=== PATIENT | female | born 1990 | race Caucasian/White ===

== ENCOUNTER 2017-02-02 12:58 | Inpatient (IN) | payer OTHER ==
[2017-02-02] MEDS ORDERED: ONDANSETRON 4 MG/2 ML VIAL IVP ONE (13:32)
[2017-02-02] MEDS ORDERED: HYDROmorphONE/DILAUDID 1 MG/ML SYR IVP ONE (13:32)
[2017-02-02] MEDS ORDERED: NS 1,000 ML IV ONE ×2 (13:32→14:07)
--- NOTE | 2017-02-02 13:36 | EDPHY ---
H & P Time Seen by Provider: 02/02/17 13:13 HPI/ROS: HPI Abdominal pain. 26-year-old female by private vehicle with her boyfriend. This patient reports that she started developing right lower quadrant abdominal pain with radiation to the right flank on Saturday evening. She reports this worsened evening. She reports that she was seen by her primary care physician, Dr. Forrest yesterday. She was diagnosed with a probable urinary tract infection and took 2 ciprofloxacin tablets since this time. She reports having some mild frequency with urination. No dysuria. No gross hematuria. Last menstrual period was 1 and half weeks ago. Last bowel movement was 2 days ago. Last meal was last night. No prior abdominal surgical history ROS: Constitutional: No fever, no chills. No weakness. Eyes: No discharge. No changes in vision. ENT: No sore throat. No nasal congestion or rhinorrhea. Respiratory: No cough. No shortness of breath. Cardiac: No chest pain, no palpitations. Gastrointestinal: As above, no vomiting, no diarrhea. Genitourinary: No hematuria. As above. Musculoskeletal: No back pain. No neck pain. No myalgias or arthralgias. Skin: No rashes. Neurological: No headache. No focal weakness or altered sensation. Past medical history: None. Takes control. Social history: Here with boyfriend. Nonsmoker. Physical Exam: General Appearance: Alert, no distress. This patient is responding to questions appropriately and in full sentences. This patient appears well- hydrated and well-nourished. Eyes: Pupils equal and round no pallor or injection. No lid edema, erythema or injection. Respiratory: There are no retractions, lungs are clear to auscultation with good air movement bilaterally. Cardiovascular: Regular rate and rhythm. No murmur. Gastrointestinal: Abdomen is soft with right lower quadrant tenderness on palpation, she also has right upper quadrant tenderness on palpation which is mild no guarding, no masses, bowel sounds normal. No focal tenderness at McBurney's point. No Nguyen sign. Neurological: Motor sensory function is grossly intact. Cranial nerves are normal. Gait is normal. Skin: Warm and dry, no rashes. Musculoskeletal: Mild right upper CVA tenderness on palpation. Extremities are symmetrical. All joints range without pain or impingement. Psychiatric: No agitation. No depression. Database: EKG: Imaging: CT scan of abdomen and pelvis with IV contrast: Significant for pyelonephritis. Results discussed with staff radiologist Dr. Aristides Mckeon. Procedures: Emergency department course: IV placed. She was placed on a monitor. She was started on IV normal saline with 1 L to be given over the next hour. She was made NPO. She will initially be given 0.5 mg of IV hydromorphone for pain and 4 mg of IV Zofran for nausea. She will be sent for CT imaging to evaluate for possible appendicitis. 2:45 p.m., informed of CT scan results. Patient given a 2nd L of IV normal saline. 2 g of IV Rocephin ordered. 3:20 p.m., patient re-evaluated, feeling better but still remains tachycardic at 110-115. Sepsis protocol initiated. Blood cultures, lactate will be obtained. 3rd L of IV normal saline started. Plan will be to admit this patient at this time. Hospitalist paged. 4:00 p.m., spoke with on-call hospitalist, Dr. Hong. Patient admitted to the hospitalist service in stable condition. Differential Diagnosis: The differential diagnosis on this patient includes but is not limited to appendicitis, biliary colic, cholecystitis, nephrolithiasis, urinary tract infection, pyelonephritis. This represents a partial list of diagnoses considered. These considerations are based on history, physical exam, past history, reassessment and diagnostic testing. Smoking Status: Current every day smoker Constitutional: Initial Vital Signs Temperature (C) 37.2 C 02/02/17 13:08 Heart Rate 120 H 02/02/17 13:08 Respiratory Rate 17 02/02/17 13:08 Blood Pressure 98/60 L 02/02/17 13:08 O2 Sat (%) 99 02/02/17 13:08 O2 Delivery Mode Room Air Allergies/Adverse Reactions: erythromycin base Allergy (Verified 02/02/17 13:07) Home Medications: Medication Instructions Recorded Oly Allergy 02/02/17 Medical Decision Making - Diagnostics Imaging Results: Imaging Impressions Abdomen CT 02/02/17 13:32 Impression: Multiple areas of diminished enhancement within the right kidney compatible with multifocal pyelonephritis, with mild perinephric inflammatory stranding. Results called to Dr. Xavier at 2:45 PM. - Data Points Laboratory Results: Laboratory Results 02/02/17 13:30 02/02/17 13:30 02/02/17 02/02/17 02/02/17 13:34 13:30 13:30 WBC RBC Hgb Hct MCV MCH MCHC RDW Plt Count MPV Neut % (Auto) Lymph % (Auto) [place] % (Auto) Eos % (Auto) Baso % (Auto) Nucleat RBC Rel Count Absolute Neuts (auto) Absolute Lymphs (auto) Absolute Monos (auto) Absolute Eos (auto) Absolute Basos (auto) Absolute Nucleated RBC Immature Gran % Immature Gran # Sodium 135 mEq/L mEq/L (134-144) Potassium 4.4 mEq/L mEq/L (3.5-5.2) Chloride 101 mEq/L mEq/L (97-110) Carbon Dioxide 24 mEq/l mEq/l (22-31) Anion Gap 10 mEq/L mEq/L (8-16) BUN 7 mg/dL mg/dL (7-23) Creatinine 0.7 mg/dL mg/dL (0.6-1.0) Estimated GFR > 60 Glucose 113 mg/dL H mg/dL (70-100) Calcium 8.7 mg/dL mg/dL (8.5-10.4) Total Bilirubin 0.9 mg/dL mg/dL (0.1-1.4) Conjugated Bilirubin 0.3 mg/dL mg/dL (0.0-0.5) Unconjugated Bilirubin 0.6 mg/dL mg/dL (0.0-1.1) AST 18 IU/L IU/L (14-46) ALT 22 IU/L IU/L (9-52) Alkaline Phosphatase 66 IU/L IU/L (38-126) Total Protein 7.1 g/dL g/dL (6.3-8.2) Albumin 4.1 g/dL g/dL (3.5-5.0) Lipase 13.0 IU/L L IU/L (23-300) Beta HCG, Qual NEGATIVE Urine Color YELLOW Urine Appearance HAZY Urine pH 5.0 (5.0-7.5) Ur Specific [place] 1.014 (1.002-1.030) Urine Protein 1+ H (NEGATIVE) Urine Ketones TRACE H (NEGATIVE) Urine Blood 1+ H (NEGATIVE) Urine Nitrate NEGATIVE (NEGATIVE) Urine Bilirubin NEGATIVE (NEGATIVE) Urine Urobilinogen NEGATIVE EU EU (0.2-1.0) Ur Leukocyte Esterase 1+ H (NEGATIVE) Urine RBC 5-10 /hpf H /hpf (0-3) Urine WBC 25-50 /hpf H /hpf (0-3) Ur Epithelial Cells 1+ /lpf /lpf (NONE-1+) Hyaline Casts 1-5 /lpf /lpf (0-1) Urine Mucus TRACE /lpf /lpf (NONE-1+) Urine Glucose NEGATIVE (NEGATIVE) 02/02/17 13:30 WBC 27.56 10^3/uL H 10^3/uL (3.80-9.50) RBC 4.10 10^6/uL L 10^6/uL (4.18-5.33) Hgb 12.5 g/dL L g/dL (12.6-16.3) Hct 36.8 % L % (38.0-47.0) MCV 89.8 fL fL (81.5-99.8) MCH 30.5 pg pg (27.9-34.1) MCHC 34.0 g/dL g/dL (32.4-36.7) RDW 12.1 % % (11.5-15.2) Plt Count 255 10^3/uL 10^3/uL (150-400) MPV 10.0 fL fL (8.7-11.7) Neut % (Auto) 87.7 % H % (39.3-74.2) Lymph % (Auto) 6.6 % L % (15.0-45.0) [place] % (Auto) 4.7 % % (4.5-13.0) Eos % (Auto) 0.0 % L % (0.6-7.6) Baso % (Auto) 0.3 % % (0.3-1.7) Nucleat RBC Rel Count 0.0 % % (0.0-0.2) Absolute Neuts (auto) 24.13 10^3/uL H 10^3/uL (1.70-6.50) Absolute Lymphs (auto) 1.83 10^3/uL 10^3/uL (1.00-3.00) Absolute Monos (auto) 1.30 10^3/uL H 10^3/uL (0.30-0.80) Absolute Eos (auto) 0.01 10^3/uL L 10^3/uL (0.03-0.40) Absolute Basos (auto) 0.09 10^3/uL 10^3/uL (0.02-0.10) Absolute Nucleated RBC 0.00 10^3/uL 10^3/uL (0-0.01) Immature Gran % 0.7 % % (0.0-1.1) Immature Gran # 0.20 10^3/uL H 10^3/uL (0.00-0.10) Sodium Potassium Chloride Carbon Dioxide Anion Gap BUN Creatinine Estimated GFR Glucose Calcium Total Bilirubin Conjugated Bilirubin Unconjugated Bilirubin AST ALT Alkaline Phosphatase Total Protein Albumin Lipase Beta HCG, Qual Urine Color Urine Appearance Urine pH Ur Specific [place] Urine Protein Urine Ketones Urine Blood Urine Nitrate Urine Bilirubin Urine Urobilinogen Ur Leukocyte Esterase Urine RBC Urine WBC Ur Epithelial Cells Hyaline Casts Urine Mucus Urine Glucose Medications Given: Discontinued Medications Hydromorphone HCl (Dilaudid) 0.5 mg IVP EDNOW ONE Stop: 02/02/17 13:33 Last Admin: 02/02/17 13:57 Dose: 0.5 mg Sodium Chloride (Ns) 1,000 mls @ 0 mls/hr IV ONCE ONE PRN Reason: Wide Open Stop: 02/02/17 13:33 Last Admin: 02/02/17 13:57 Dose: 1,000 mls Sodium Chloride (Ns) 1,000 mls @ 0 mls/hr IV ONCE ONE PRN Reason: Wide Open Stop: 02/02/17 14:08 Last Admin: 02/02/17 14:33 Dose: 1,000 mls Ceftriaxone Sodium 2 gm/ (Dextrose) 50 mls @ 100 mls/hr IV EDNOW ONE PRN Reason: Protocol Stop: 02/02/17 15:15 Last Admin: 02/02/17 15:30 Dose: 50 mls Ondansetron HCl (Zofran) 4 mg IVP EDNOW ONE Stop: 02/02/17 13:33 Last Admin: 02/02/17 13:56 Dose: 4 mg Departure - Departure Disposition: [facility] Clinical Impression: Abdominal pain, Pyelonephritis, Sepsis Referrals: Magaly Bolanos PA [Primary Care Provider] - As per Instructions
[2017-02-02 13:37] LABS: % IMMATURE GRANULYOCYTES 0.7 % (0.0-1.1); ADD DIFF? NO; ADD MORPH? NO; ADD SCAN? NO; ATYPICAL LYMPHOCYTE FLAG 0 (0-99); FRAGMENT RBC FLAG 0 (0-99); HEMATOCRIT 36.8 % (38.0-47.0); HEMOGLOBIN 12.5 g/dL (12.6-16.3); LEFT SHIFT FLG 40 (0-99); LIPEMIA HEMOLYSIS FLAG 90 (0-99); MEAN CELL HEMOGLOBIN 30.5 pg (27.9-34.1); MEAN CELL VOLUME 89.8 fL (81.5-99.8); PLATELET CLUMPS FLAG 0 (0-99); PLATELET COUNT 255 10^3/uL (150-400); RED CELL DISTRIBUTION WIDTH 12.1 % (11.5-15.2)
[2017-02-02 13:53] LABS: COLOR YELLOW; LEUKOCYTE ESTERASE,URINE 1+ (NEGATIVE); NITRITE,URINE NEGATIVE (NEGATIVE)
[2017-02-02 13:54] LABS: ALANINE AMINOTRANSFERASE 22 IU/L (9-52); ALBUMIN 4.1 g/dL (3.5-5.0); ALKALINE PHOSPHATASE 66 IU/L (38-126); ASPARTATE AMINOTRANSFERASE 18 IU/L (14-46); BILIRUBIN,TOTAL 0.9 mg/dL (0.1-1.4); BILIRUBIN-CONJUGATED 0.3 mg/dL (0.0-0.5); BILIRUBIN-UNCONJUGATED 0.6 mg/dL (0.0-1.1); CALCIUM 8.7 mg/dL (8.5-10.4); CARBON DIOXIDE 24 mEq/l (22-31); CHLORIDE 101 mEq/L (97-110); CREATININE 0.7 mg/dL (0.6-1.0); GLOMERULAR FILTRATION RATE > 60; GLUCOSE 113 mg/dL (70-100); SODIUM 135 mEq/L (134-144); TOTAL PROTEIN 7.1 g/dL (6.3-8.2)
[2017-02-02 13:54] LABS: MUCUS TRACE /lpf (NONE-1+); WBC,URINE 25-50 /hpf (0-3)
[2017-02-02 14:00] LABS: ANION GAP 10 mEq/L (8-16); POTASSIUM 4.4 mEq/L (3.5-5.2)
[2017-02-02] MEDS ORDERED: IOPAMIDOL (ISOVUE-300) 100 ML BTL ONE (14:05)
[2017-02-02] MEDS ORDERED: cefTRIAXone 2 GM in D5W 50 ML IV ONE (14:46)
[2017-02-02 16:41] LABS: BILIRUBIN,TOTAL 0.9 mg/dL (0.1-1.4)
--- NOTE | 2017-02-02 16:50 | PDGENHP ---
History and Physical - Chief Complaint Back pain - History of Present Illness 26-year-old female without significant past medical history was diagnosed with a urinary tract infection yesterday inserted on Cipro. She developed some right -sided low back pain on Saturday. This was associated with some urinary frequency but no dysuria or fevers. She has had some chills. Since starting the Cipro yesterday she vomited once last night. Her appetite has been diminished. She continues to have moderate to severe right-sided low back pain that radiates to her lower right abdomen. she is unable to identify any exacerbating or alleviating factors. She denies previous history of urinary tract infection. History Information - Allergies/Home Medication List Allergies/Adverse Reactions: erythromycin base Allergy (Verified 02/02/17 13:07) Home Medications: Fexofenadine HCl [Oly Allergy] 60 mg PO DAILY 02/02/17 [Last Taken 02/01/17] Norgestimate-Ethinyl Estradiol [Tri-Sprintec] 1 tab PO DAILY 02/02/17 [Last Taken 02/01/17] I have personally reviewed and updated: family history, medical history, social history, surgical history - Past Medical History no pertinent PMH - Surgical History Reports: no pertinent surgical hx - Social History Smoking Status: Current every day smoker Alcohol Use: Occasionally Drug Use: None Review of Systems ROS: 10pt was reviewed & negative except for what was stated in HPI & below Physical Exam Temp Pulse Resp BP Pulse Ox 36.8 C 104 H 18 126/66 H 96 02/02/17 14:00 02/02/17 14:00 02/02/17 14:00 02/02/17 14:00 02/02/17 14:00 Constitutional: no apparent distress, appears nourished, uncomfortable Eyes: PERRL, anicteric sclera, EOMI Ears, Nose, Mouth, Throat: moist mucous membranes, hearing normal, ears appear normal, no oral mucosal ulcers Cardiovascular: regular rate and rhythym, no murmur, rub, or gallop, No edema Respiratory: no respiratory distress, no rales or rhonchi, clear to auscultation Gastrointestinal: normoactive bowel sounds, soft, non-tender abdomen, no palpable masses Genitourinary: no bladder fullness, no bladder tenderness, other ( Right CVA tenderness to percussion) Skin: warm, normal color, no rashes or abrasions, no fluctuance, no induration, No mottled Musculoskeletal: full muscle strength, no muscle tenderness, normal joint ROM, no joint effusions Neurologic: AAOx3, CN II-XII Intact, No facial droop Psychiatric: interacting appropriately, not anxious, not encephalopathic, thought process linear Lab Data & Imaging Review 02/02/17 13:30 02/02/17 13:30 WBC 27.56 10^3/uL (3.80-9.50) H 02/02/17 13:30 RBC 4.10 10^6/uL (4.18-5.33) L 02/02/17 13:30 Hgb 12.5 g/dL (12.6-16.3) L 02/02/17 13:30 Hct 36.8 % (38.0-47.0) L 02/02/17 13:30 MCV 89.8 fL (81.5-99.8) 02/02/17 13:30 MCH 30.5 pg (27.9-34.1) 02/02/17 13:30 MCHC 34.0 g/dL (32.4-36.7) 02/02/17 13:30 RDW 12.1 % (11.5-15.2) 02/02/17 13:30 Plt Count 255 10^3/uL (150-400) 02/02/17 13:30 MPV 10.0 fL (8.7-11.7) 02/02/17 13:30 Neut % (Auto) 87.7 % (39.3-74.2) H 02/02/17 13:30 Lymph % (Auto) 6.6 % (15.0-45.0) L 02/02/17 13:30 [place] % (Auto) 4.7 % (4.5-13.0) 02/02/17 13:30 Eos % (Auto) 0.0 % (0.6-7.6) L 02/02/17 13:30 Baso % (Auto) 0.3 % (0.3-1.7) 02/02/17 13:30 Nucleat RBC Rel Count 0.0 % (0.0-0.2) 02/02/17 13:30 Absolute Neuts (auto) 24.13 10^3/uL (1.70-6.50) H 02/02/17 13:30 Absolute Lymphs (auto) 1.83 10^3/uL (1.00-3.00) 02/02/17 13:30 Absolute Monos (auto) 1.30 10^3/uL (0.30-0.80) H 02/02/17 13:30 Absolute Eos (auto) 0.01 10^3/uL (0.03-0.40) L 02/02/17 13:30 Absolute Basos (auto) 0.09 10^3/uL (0.02-0.10) 02/02/17 13:30 Absolute Nucleated RBC 0.00 10^3/uL (0-0.01) 02/02/17 13:30 Immature Gran % 0.7 % (0.0-1.1) 02/02/17 13:30 Immature Gran # 0.20 10^3/uL (0.00-0.10) H 02/02/17 13:30 VBG Lactic Acid 0.8 mmol/L (0.7-2.1) 02/02/17 16:05 Sodium 135 mEq/L (134-144) 02/02/17 13:30 Potassium 4.4 mEq/L (3.5-5.2) 02/02/17 13:30 Chloride 101 mEq/L (97-110) 02/02/17 13:30 Carbon Dioxide 24 mEq/l (22-31) 02/02/17 13:30 Anion Gap 10 mEq/L (8-16) 02/02/17 13:30 BUN 7 mg/dL (7-23) 02/02/17 13:30 Creatinine 0.7 mg/dL (0.6-1.0) 02/02/17 13:30 Estimated GFR > 60 02/02/17 13:30 Glucose 113 mg/dL (70-100) H 02/02/17 13:30 Calcium 8.7 mg/dL (8.5-10.4) 02/02/17 13:30 Total Bilirubin 0.9 mg/dL (0.1-1.4) 02/02/17 13:50 Conjugated Bilirubin 0.3 mg/dL (0.0-0.5) 02/02/17 13:30 Unconjugated Bilirubin 0.6 mg/dL (0.0-1.1) 02/02/17 13:30 AST 18 IU/L (14-46) 02/02/17 13:30 ALT 22 IU/L (9-52) 02/02/17 13:30 Alkaline Phosphatase 66 IU/L (38-126) 02/02/17 13:30 Total Protein 7.1 g/dL (6.3-8.2) 02/02/17 13:30 Albumin 4.1 g/dL (3.5-5.0) 02/02/17 13:30 Lipase 13.0 IU/L (23-300) L 02/02/17 13:30 Beta HCG, Qual NEGATIVE 02/02/17 13:30 Urine Color YELLOW 02/02/17 13:34 Urine Appearance HAZY 02/02/17 13:34 Urine pH 5.0 (5.0-7.5) 02/02/17 13:34 Ur Specific [place] 1.014 (1.002-1.030) 02/02/17 13:34 Urine Protein 1+ (NEGATIVE) H 02/02/17 13:34 Urine Ketones TRACE (NEGATIVE) H 02/02/17 13:34 Urine Blood 1+ (NEGATIVE) H 02/02/17 13:34 Urine Nitrate NEGATIVE (NEGATIVE) 02/02/17 13:34 Urine Bilirubin NEGATIVE (NEGATIVE) 02/02/17 13:34 Urine Urobilinogen NEGATIVE EU (0.2-1.0) 02/02/17 13:34 Ur Leukocyte Esterase 1+ (NEGATIVE) H 02/02/17 13:34 Urine RBC 5-10 /hpf (0-3) H 02/02/17 13:34 Urine WBC 25-50 /hpf (0-3) H 02/02/17 13:34 Ur Epithelial Cells 1+ /lpf (NONE-1+) 02/02/17 13:34 Hyaline Casts 1-5 /lpf (0-1) 02/02/17 13:34 Urine Mucus TRACE /lpf (NONE-1+) 02/02/17 13:34 Urine Glucose NEGATIVE (NEGATIVE) 02/02/17 13:34 Imaging Review: CT of the abdomen and pelvis was reviewed: Multiple areas of diminished enhancement within the right kidney compatible with multifocal pyelonephritis, with mild perinephric inflammatory stranding. Assessment & Plan Assessment: This is a 26-year-old female presenting with Right-sided low back pain found to have leukocytosis and tachycardia consistent with: # sepsis without signs of severe sepsis or septic shock due to below # right-sided pyelonephritis # history of tobacco use # mild normocytic anemia # history of OCP use plan: - Admit to inpatient - follow up culture data - continue ceftriaxone as ordered - symptomatic treatments of pain with Tylenol and Toradol - repeat CBC and BMP in the morning - recommend outpatient follow-up and monitoring of her anemia - branch credit counselor regarding smoking cessation a upon discharge
[2017-02-02] MEDS ORDERED: ONDANSETRON 4 MG/2 ML VIAL IVP PRN (16:55)
[2017-02-02] MEDS: KETOROLAC 15 MG/1 ML SDV IVP PRN ×2 (17:33→23:46)
[2017-02-02] MEDS: ACETAMINOPHEN 325 MG TAB PO PRN (21:53)
[2017-02-02] MEDS: D5W 1/2 NS W/ 20 KCl/L 1,000 ML IV SCH (23:45)
[2017-02-03] MEDS: HYDROCODONE/APAP 5/325 TAB PO PRN ×5 (00:24→23:34)
[2017-02-03] MEDS: KETOROLAC 15 MG/1 ML SDV IVP PRN (05:13)
[2017-02-03 05:22] LABS: % IMMATURE GRANULYOCYTES 0.8 % (0.0-1.1); ABSOLUTE IMMATURE GRANULOCYTES 0.16 10^3/uL (0.00-0.10); ADD DIFF? NO; ADD MORPH? NO; ADD SCAN? NO; ATYPICAL LYMPHOCYTE FLAG 0 (0-99); FRAGMENT RBC FLAG 0 (0-99); HEMOGLOBIN 10.6 g/dL (12.6-16.3); LEFT SHIFT FLG 10 (0-99); LIPEMIA HEMOLYSIS FLAG 80 (0-99); MEAN CELL HEMOGLOBIN 29.9 pg (27.9-34.1); MEAN CELL HEMOGLOBIN CONCENTR. 32.1 g/dL (32.4-36.7); MEAN CELL VOLUME 93.2 fL (81.5-99.8); MEAN PLATELET VOLUME 10.1 fL (8.7-11.7); PLATELET CLUMPS FLAG 0 (0-99); PLATELET COUNT 219 10^3/uL (150-400); RED BLOOD CELL COUNT 3.54 10^6/uL (4.18-5.33); RED CELL DISTRIBUTION WIDTH 12.2 % (11.5-15.2)
[2017-02-03 05:49] LABS: ANION GAP 7 mEq/L (8-16); CARBON DIOXIDE 22 mEq/l (22-31); CHLORIDE 110 mEq/L (97-110); CREATININE 0.6 mg/dL (0.6-1.0); GLOMERULAR FILTRATION RATE > 60; GLUCOSE 127 mg/dL (70-100); POTASSIUM 4.4 mEq/L (3.5-5.2); SODIUM 139 mEq/L (134-144)
[2017-02-03] MEDS: D5W 1/2 NS W/ 20 KCl/L 1,000 ML IV SCH ×2 (08:11→22:25)
[2017-02-03] MEDS: cefTRIAXone 2 GM in D5W 50 ML IV SCH (08:16)
[2017-02-03] MEDS ORDERED: NORGESTIMATE ETHINYL ESTRADIOL PO SCH (09:00)
[2017-02-03] MEDS: NORGESTIMATE ETHINYL ESTRADIOL PO SCH (12:53)
[2017-02-03] MEDS ORDERED: BISACODYL 10 MG SUPP PR PRN (13:28)
[2017-02-03] MEDS ORDERED: MAGNESIUM HYDROXIDE 30 ML UDCUP PO PRN (13:28)
[2017-02-03] MEDS ORDERED: LACTULOSE 20 GM/30 ML UDCUP PO PRN (13:28)
--- NOTE | 2017-02-03 13:31 | HOSPPROG ---
Hospitalist Progress Note Assessment/Plan: Sepsis secondary to pyelonephritis - Still spiking fevers, though wbc's trending down. BCx and UCx pending. Continue IV Ceftriaxone. Follow fever curve. Full code Dispo - cont inpt Subjective: Pt feels a bit better today, less pain. Energy improved. No N/V. Still having fevers. Objective: Vital Signs Temp Pulse Resp BP Pulse Ox 36.9 C 97 16 91/81 H 97 02/03/17 11:29 02/03/17 11:29 02/03/17 11:29 02/03/17 11:29 02/03/17 11:29 Laboratory Results 02/03/17 04:42 02/03/17 04:42 02/02/17 02/03/17 02/04/17 05:59 05:59 05:59 Intake Total 4651 Output Total 1675 Balance 2976 - Physical Exam Constitutional: no apparent distress Eyes: PERRL Ears, Nose, Mouth, Throat: moist mucous membranes Cardiovascular: regular rate and rhythym Respiratory: no respiratory distress Gastrointestinal: normoactive bowel sounds, other (soft, mild right sided TTP, no r/r/g) Skin: warm Musculoskeletal: other (+CVA tenderness on right) Neurologic: AAOx3 Psychiatric: interacting appropriately ICD10 Worksheet Patient Problems: Problems Problem Status Onset Abdominal pain Acute Pyelonephritis Acute Sepsis Acute
[2017-02-03] MEDS: POLYETHYLENE GLYCOL 3350 17 GM PKT PO PRN (14:50)
[2017-02-03] MEDS: ACETAMINOPHEN 325 MG TAB PO PRN (16:04)
[2017-02-03] MEDS: SENNOSIDES/DOCUSATE SODIUM TAB PO SCH (19:50)
[2017-02-04 04:23] LABS: % IMMATURE GRANULYOCYTES 0.5 % (0.0-1.1); ABSOLUTE IMMATURE GRANULOCYTES 0.07 10^3/uL (0.00-0.10); ADD DIFF? NO; ADD MORPH? NO; ADD SCAN? NO; ATYPICAL LYMPHOCYTE FLAG 0 (0-99); FRAGMENT RBC FLAG 0 (0-99); HEMATOCRIT 32.1 % (38.0-47.0); HEMOGLOBIN 10.5 g/dL (12.6-16.3); LEFT SHIFT FLG 20 (0-99); LIPEMIA HEMOLYSIS FLAG 80 (0-99); MEAN CELL HEMOGLOBIN 30.1 pg (27.9-34.1); MEAN CELL HEMOGLOBIN CONCENTR. 32.7 g/dL (32.4-36.7); MEAN PLATELET VOLUME 10.1 fL (8.7-11.7); PLATELET CLUMPS FLAG 10 (0-99); PLATELET COUNT 230 10^3/uL (150-400); RED BLOOD CELL COUNT 3.49 10^6/uL (4.18-5.33); RED CELL DISTRIBUTION WIDTH 12.1 % (11.5-15.2)
[2017-02-04] MEDS: KETOROLAC 15 MG/1 ML SDV IVP PRN (05:18)
[2017-02-04] MEDS: SENNOSIDES/DOCUSATE SODIUM TAB PO SCH ×2 (09:02→21:28)
[2017-02-04] MEDS: cefTRIAXone 2 GM in D5W 50 ML IV SCH (09:02)
[2017-02-04] MEDS: POLYETHYLENE GLYCOL 3350 17 GM PKT PO PRN (09:02)
[2017-02-04] MEDS: NORGESTIMATE ETHINYL ESTRADIOL PO SCH (09:03)
--- NOTE | 2017-02-04 13:12 | HOSPPROG ---
Hospitalist Progress Note Assessment/Plan: Sepsis secondary to pyelonephritis - Improving, wbc's trending down. BCx and UCx ngtd. Continue IV Ceftriaxone. Follow fever curve. Likely home tomorrow on po atbx to complete 10-14 day course. Full code Dispo - cont inpt Subjective: Pt feels better. Still some pain in mid right abdomen. No N/V. No fevers overnight. Objective: Vital Signs Temp Pulse Resp BP Pulse Ox 36.8 C 84 16 124/72 H 97 02/04/17 12:00 02/04/17 12:00 02/04/17 12:00 02/04/17 12:00 02/04/17 12:00 Laboratory Results 02/04/17 03:58 02/03/17 04:42 02/03/17 02/04/17 02/05/17 05:59 05:59 05:59 Intake Total 4651 3740 Output Total 1675 500 Balance 2976 3240 - Physical Exam Constitutional: no apparent distress Eyes: PERRL Ears, Nose, Mouth, Throat: moist mucous membranes Cardiovascular: regular rate and rhythym Respiratory: no respiratory distress Gastrointestinal: normoactive bowel sounds, soft, non-tender abdomen Skin: warm Musculoskeletal: full muscle strength Neurologic: AAOx3 Psychiatric: interacting appropriately ICD10 Worksheet Patient Problems: Problems Problem Status Onset Abdominal pain Acute Pyelonephritis Acute Sepsis Acute
[2017-02-04] MEDS: D5W 1/2 NS W/ 20 KCl/L 1,000 ML IV SCH (15:47)
[2017-02-04] MEDS: HYDROCODONE/APAP 5/325 TAB PO PRN (22:02)
[2017-02-05 04:17] LABS: % IMMATURE GRANULYOCYTES 0.4 % (0.0-1.1); ABSOLUTE IMMATURE GRANULOCYTES 0.04 10^3/uL (0.00-0.10); ADD DIFF? NO; ADD MORPH? NO; ADD SCAN? NO; ATYPICAL LYMPHOCYTE FLAG 20 (0-99); FRAGMENT RBC FLAG 0 (0-99); HEMATOCRIT 33.1 % (38.0-47.0); LEFT SHIFT FLG 0 (0-99); LIPEMIA HEMOLYSIS FLAG 80 (0-99); MEAN CELL HEMOGLOBIN 29.9 pg (27.9-34.1); MEAN CELL HEMOGLOBIN CONCENTR. 33.2 g/dL (32.4-36.7); MEAN CELL VOLUME 89.9 fL (81.5-99.8); MEAN PLATELET VOLUME 9.7 fL (8.7-11.7); PLATELET CLUMPS FLAG 0 (0-99); PLATELET COUNT 267 10^3/uL (150-400); RED BLOOD CELL COUNT 3.68 10^6/uL (4.18-5.33); RED CELL DISTRIBUTION WIDTH 11.9 % (11.5-15.2)
[2017-02-05 07:56] VITALS: BP 118/77; PULSE 77; RESP 14; TEMP 98.5; O2SAT 97
[2017-02-05] MEDS: cefTRIAXone 2 GM in D5W 50 ML IV SCH (08:57)
--- NOTE | 2017-02-05 22:08 | GDS ---
[f rep st] DISCHARGE SUMMARY DISCHARGE DIAGNOSIS: Sepsis, secondary to acute pyelonephritis, without signs of severe sepsis or s eptic shock. CONSULTANTS: None. IMAGING STUDIES/PROCEDURES: Abdomen and pelvis CT, February 02, 2017, showed multiple areas of diminishe d enhancement within the right kidney compatible with multifocal pyelonephritis, with mild perinephr ic inflammatory stranding. HISTORY: For details, please see dictated history and physical dated February 02, 2017. In brief, the albert martinez is a 26-year-old female, with no significant past medical history, who was diagnosed with a u rinary tract infection the day prior to arrival, and was started on ciprofloxacin. However she deve loped worsening right-sided low back pain, along with chills and vomiting. She was admitted to the hospital for further management. HOSPITAL COURSE: The patient was admitted to the medical/surgical unit. She was treated with aggre ssive IV fluids. She had no hypotension or evidence of severe sepsis or septic shock. She was star lynette on empiric IV ceftriaxone. Her white count on arrival was 27,000. This trended down to 9000 on the day of discharge. Her blood cultures remain no growth to date for over 48 hours. Interestingl y, her urine culture is also negative to date. She did receive 2 doses of oral ciprofloxacin prior to arrival. Though she had fevers during the first 48 hours of admission, she remained afebrile for 48 hours prior to discharge. Clinically, she is significantly improved. DISPOSITION: Patient is discharged home in stable condition. FOLLOWUP: Dr. Magaly Bolanos, primary care provider. DISCHARGE MEDICATIONS: Please see [employer] for completed and updated outpatient medication list. N ew medications on discharge include ciprofloxacin 500 mg p.o. twice daily, #20, no refills, to compl ete a total of 2 weeks of therapy. /[id number]/MODL
== END 2017-02-05 11:34 | disposition home or self-care (01) | DRG 872 ==
LOC: F1N 17:09
PROVIDERS: ADMIT Family Medicine; ATTEND Hospitalist
DX: A41.9 Sepsis, unspecified organism (principal); N10 Acute pyelonephritis
CPT/HCPCS: 96365; J0696; J1170; J1885; J2405; Q9967

== ENCOUNTER 2017-04-17 18:16 | Emergency (ER) | payer BC, OTHER ==
[2017-04-17 18:24] VITALS: RESP 18
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
[2017-04-17 21:00] VITALS: BP 124/80; PULSE 83; TEMP 98.8; O2SAT 96
== END 2017-04-27 13:27 | disposition home or self-care (01) ==
LOC: EDUNIT#
PROC: 0HQ0XZZ Repair Scalp Skin, External Approach (ICD-10-PCS; principal; 2017-04-17)
DX: S01.01XA Laceration without foreign body of scalp, initial encounter (principal); J45.909 Unspecified asthma, uncomplicated; V11.4XXA Pedal cycle driver injured in collision with other pedal cycle in traffic accident, initial encounter; Y92.89 Other specified places as the place of occurrence of the external cause; Y99.8 Other external cause status; Y93.23 Activity, snow (alpine) (downhill) skiing, snowboarding, sledding, tobogganing and snow tubing